=== PATIENT | male | born 1970 | race Caucasian/White ===

== ENCOUNTER → 2017-03-14 | Day surgery (SDC) | payer OTHER ==
[~2017-03-14] VITALS: Ht 186.7 cm; Wt 98.9 kg
[~2017-03-14] MED LIST: BUPIVACAINE 0.5% 50 ML VIAL. ONE; CHOL2000 PO; DESFLURANE > 120 MINUTES IH ONE; DEXAMETHASONE SOD PHOS 20 MG/5 ML VIAL. ONE; FAMOTIDINE 20 MG/2 ML VIAL ONE; GLYCOPYRROLATE 1 MG/5 ML VIAL. ONE; HYDROmorphone 2 MG/ML VIAL ONE; IBUP-1060 PO; IV RINGERS,LACTATED 1000ML 1,000 ML IV SCH; LIDOCAINE 1% 1 ML SYRINGE. ID PRN; LIDOCAINE 1% 20 ML VIAL. ONE; LIDOCAINE 2% PF Vial for OR 5 ML VIAL. ONE; LISI10TA2 PO; LISI1TAB3 PO; MIDAZOLAM HCL/PF 2 MG/2 ML VIAL. ONE; MORPHINE SULFATE 10 MG/ML VIAL. ONE; MORPHINE SULFATE 2 MG/ML DISP.SYRIN. ONE; NEOSTIGMINE METHYLSULFATE 5 MG/5 ML SYRINGE. ONE; OMEG1CAP6 PO; OMEP20CA9 PO; ONDANSETRON PF 4 MG/2 ML VIAL. IV PRN; ONDANSETRON PF 4 MG/2 ML VIAL. ONE; OXYC10TA PO; PHENYLEPHRINE in 0.9% NACL PF 1 MG/10 ML DISP.SYRIN. IV ONE; PROCHLORPERAZINE 10 MG/2 ML VIAL. IV PRN; PROPOFOL 20 ML IV ONE; SENN1TAB7 PO; [UNRECOGNIZED DRUG - OTHER] PO; fentaNYL PF VIAL 100 MCG/2 ML VIAL IV PRN; fentaNYL PF VIAL 100 MCG/2 ML VIAL ONE; oxyCODONE IR 5 MG TABLET ONE; oxyCODONE IR 5 MG TABLET PO ONE
--- NOTE | 2017-03-14 09:34 | DISCH ---
DISCHARGE INSTRUCTIONS Condition on Discharge Condition on Discharge: Stable Activity After Discharge Activity Instructions for Disc: Other, see below Other activity instructions: arms to remain in splints Bathing Instructions: Shower-keep dressing dry Weight Bearing Status after Di: Non weight bearing Diet after Discharge Diet after Discharge: Regular Wound Incision Care Wound/Incision Care: Ice to area for comfort, Keep wound/cast CDI, Keep wound elevated, Do not change dressing Contacting the DRCrystal after DC Call your doctor for: Concerns you may have Follow-Up Follow up with: Carlos Enrique in 2wks MUSHTAQ GUNTER II, MD Mar 14, 2017 09:34
--- NOTE | 2017-03-14 09:40 | PDOC4 ---
Operative Note Operative Note Date of surgery: 03/14/2017 Surgeon: Larry Gunter Preoperative diagnosis: Closed bilateral intra-articular comminuted distal radius fractures Postoperative diagnosis: Same Procedure performed: Open reduction internal fixation of bilateral distal radius fractures. Anesthesia Gen. Tourniquet time: see op record Blood loss: 50mL Components inserted: Chaidez and Nephew distal radius locking plates Complications: none Reason for procedure: Hudson is a very pleasant 46-year-old who is referred to see myself from the [facility] but after [facility] suffered a [facility] and found to have displaced comminuted intra-articular bilateral distal radius fractures. Because of the fracture deformity and being bilateral injuries I did discuss proceeding with operative fixation of both of these fractures with him and after discussion of the risks, benefits, and alternatives he elected to proceed. Description of procedure: Patient was greeted in the preoperative area where the correct extremities were marked and verified. Taken back to the operative suite and his antibiotics were started and row. Once in the OR he was secured to the bed with all pressure points padded. We then placed a nonsterile tourniquet onto his left upper extremity and secured in place. We then proceeded to prep and drape this upper extremity in her usual sterile fashion after attaching the armboard. It should be noted that after removing the splint we did use a chlorhexidine pre-scrub as well. After prepping and draping, we conducted our standard preoperative timeout. I then palpated and marked her surface anatomy and zackery a line from my standard volar Aryan approach. We then exsanguinated the extremity with an Esmarch and tourniquet was insufflated to 225 mmHg. I then incised skin with a scalpel and dissected subcutaneous tissue with tenotomies and used bipolar electrocautery for cautery. The skin incision and bluntly dissected down to the pronator quadratus and fracture site. The pronator quadratus was taken down with electrocautery. I used a periosteal elevator to expose the volar distal radius in anticipation my plate application. I then performed a closed reduction maneuver consisting of re- creating the deformity and traction through his radial column with some direct manipulation as well. I then brought in C-arm to confirm appropriate reduction and used a [place] elevator tequila couple pieces back into better position. I then provisionally pinned my plate into place and checked hardware position and fracture reduction was happy with this. I then secured the plate to the shaft with a nonlocking screw and then placed my distal locking screws through the fragments. After this, I placed 2 more nonlocking screws through the plate to secured to the distal radial shaft. This wound was then irrigated out. I then took my final images. I then reapproximated the pronator quadratus with figure- of-eight 2-0 Vicryl. Subcutaneous tissue was closed with inverted interrupted 2- 0 Vicryl after the tourniquet was let down and a couple of bleeders were cauterized with bipolar cautery. 2-0 nylon in a vertical mattress fashion was used for skin. The arm was cleansed and dried and a sterile dressing was applied followed by a sugar tong splint. We then directed attention to repositioning the armboard on the contralateral side as well as applying a nonsterile tourniquet. We then proceeded to prep and drape right upper extremity are usual sterile fashion and conducted our standard preoperative timeout. I then palpated and marked his surface anatomy and zackery a line from my standard volar Aryan approach. We then exsanguinated the extremity and Esmarch and insufflated tourniquet to 250 mmHg. I then made my skin incision dissected subcutaneous tissue with bipolar cautery and tenotomy spread I incised fashion with the skin incision and bluntly dissected down to the level of the pronator quadratus which was released with electrocautery off of the distal radius. I then used a periosteal elevator to expose the distal radius in anticipation I-plate application and then used a dental pick and a metal tipped suction device to clean out the longitudinal fracture through the metadiaphyseal region as well as at the distal radius fracture site. I then used a [id number] to hold his metaphysis to reduced and performed a closed reduction maneuver to better align his distal radius fragments. I used a [place] elevator and dental pick to help saavedra some of these and better and then provisionally placed my plate in the [place] took my C-arm images to confirm appropriate hardware position and reduction. I then secured my plate to the bone with a nonlocking screw and then directed my attention to placing my distal screws, using liberal fluoroscopy to help assist with this. I then placed another screw to secure the plate to the bone behind this distalmost row and then another screw proximal to the fracture site. I then took my final images this and was happy with fracture reduction and hardware position. After this irrigated out the operative field and we let tourniquet down I cauterized couple bleeders. Pronator was reapproximated with figure-of- eight 0 Vicryl. I then closed subcutaneous tissue with inverted interrupted 2-0 Vicryl followed by again 2-0 nylon in a vertical mattress fashion. We then cleansed and dried his right upper extremity placed sterile dressing and a sugar tong splint. Prior to compression wound closure all culture reports correct 2 for both procedures. At the conclusion of the second part of this procedure, he was awakened from anesthesia and transferred gently supine to the recovery room cart and taken to PACU in a stable and extubated condition. Postoperative plan is nonweightbearing bilateral upper extremities. He'll follow up with me in 2 weeks, sooner should a problem arise LARRY GUNTER II, MD Mar 14, 2017 09:40
[2017-03-14] MEDS: fentaNYL PF VIAL 100 MCG/2 ML VIAL IV PRN ×5 (13:12→13:59)
[2017-03-14] MEDS: MORPHINE SULFATE 2 MG/ML DISP.SYRIN. IV PRN ×4 (13:29→14:05)
[2017-03-14] MEDS: HYDROmorphone 2 MG/ML VIAL IV PRN ×4 (14:17→14:51)
[2017-03-14 15:00] VITALS: BP 180/80
== END | disposition home or self-care (01) ==
LOC: SURG 08:22
PROVIDERS: ATTEND Orthopaedic Surgery Sports Medicine
DX: S52.572A Other intraarticular fracture of lower end of left radius, initial encounter for closed fracture (principal); S52.571A Other intraarticular fracture of lower end of right radius, initial encounter for closed fracture; X58.XXXA Exposure to other specified factors, initial encounter; Y93.89 Activity, other specified; Y92.89 Other specified places as the place of occurrence of the external cause; Y99.9 Unspecified external cause status; F17.200 Nicotine dependence, unspecified, uncomplicated; I10 Essential (primary) hypertension; F41.9 Anxiety disorder, unspecified; F32.9 Major depressive disorder, single episode, unspecified; Z87.39 Personal history of other diseases of the musculoskeletal system and connective tissue; Z86.39 Personal history of other endocrine, nutritional and metabolic disease; Z72.89 Other problems related to lifestyle; Z86.69 Personal history of other diseases of the nervous system and sense organs; Z72.0 Tobacco use; Z88.6 Allergy status to analgesic agent
CPT/HCPCS: 25608; 76000; C1713; J0690; J1100; J1170; J2250; J2270; J2370; J2405; J2704; J2710; J3010; J3490; J7120; S0028; J2001

== ENCOUNTER 2017-07-11 22:38 | Inpatient (IN) | payer OTHER ==
[~2017-07-11] VITALS: Ht 188 cm; Wt 99.9 kg
[2017-07-11 12:45] VITALS: BP 114/70
[~2017-07-11 22:38] MED LIST changes: -BUPIVACAINE 0.5% 50 ML VIAL. ONE; -DESFLURANE > 120 MINUTES IH ONE; -DEXAMETHASONE SOD PHOS 20 MG/5 ML VIAL. ONE; -FAMOTIDINE 20 MG/2 ML VIAL ONE; -GLYCOPYRROLATE 1 MG/5 ML VIAL. ONE; -HYDROmorphone 2 MG/ML VIAL ONE; -IV RINGERS,LACTATED 1000ML 1,000 ML IV SCH; -LIDOCAINE 1% 1 ML SYRINGE. ID PRN; -LIDOCAINE 1% 20 ML VIAL. ONE; -LIDOCAINE 2% PF Vial for OR 5 ML VIAL. ONE; -MIDAZOLAM HCL/PF 2 MG/2 ML VIAL. ONE; -MORPHINE SULFATE 10 MG/ML VIAL. ONE; -MORPHINE SULFATE 2 MG/ML DISP.SYRIN. ONE; -NEOSTIGMINE METHYLSULFATE 5 MG/5 ML SYRINGE. ONE; -ONDANSETRON PF 4 MG/2 ML VIAL. IV PRN; -ONDANSETRON PF 4 MG/2 ML VIAL. ONE; -PHENYLEPHRINE in 0.9% NACL PF 1 MG/10 ML DISP.SYRIN. IV ONE; -PROCHLORPERAZINE 10 MG/2 ML VIAL. IV PRN; -PROPOFOL 20 ML IV ONE; -fentaNYL PF VIAL 100 MCG/2 ML VIAL IV PRN; -fentaNYL PF VIAL 100 MCG/2 ML VIAL ONE; -oxyCODONE IR 5 MG TABLET ONE; -oxyCODONE IR 5 MG TABLET PO ONE
[2017-07-11 23:00] LABS: BASO % 1 % (0-3); EOS % 3 % (0-3); HEMOGLOBIN 15.1 g/dL (13.0-17.5); LYMPH # 1.7 x10^3/uL (1.0-4.8); LYMPH % 34 % (24-48); MEAN CORPUSCULAR HEMOGLOBIN 31 pg (25-35); MEAN CORPUSCULAR HGB CONC 34 g/dL (31-37); MEAN CORPUSCULAR VOLUME 91 fL (79-100); MONO % 10 % (0-9); NEUT % 53 % (31-73); PLATELET COUNT 235 x10^3/uL (140-400); RED BLOOD COUNT 4.94 x10^6/uL (4.30-5.70); RED CELL DISTRIBUTION WIDTH 13.8 % (11.5-14.5)
[2017-07-11] MEDS ORDERED: IV NORMAL SALINE 1000ML BAG 1,000 ML IV SCH (23:00)
--- NOTE | 2017-07-11 23:07 | PHYS DOC ---
Adult General Chief Complaint Chief Complaint: SUICDAL IDEATION HPI HPI Patient is a 47 year old male who presents with complaint of intentional drug overdose. The patient states that he took approximately 40-50 tablets of lisinopril/HCTZ 10/12.5mg at approximately 2030 this evening. The patient states he took this medication with intent to try to kill himself. The patient also states that he has drank 2 pints of vodka today which reportedly is a regular daily consumption. The patient is feeling very depressed at this time and states that he has history of PTSD, anxiety, and depression. The patient states that he is having chronic back pain at this time but denies any new or acute symptoms upon presentation to the emergency department. The patient is asking for help. The patient originally planned on going to the [place] tomorrow for help, however he decided to act on his thoughts of suicide tonight. Review of Systems Review of Systems Constitutional: Denies fever or chills [] Eyes: Denies change in visual acuity, redness, or eye pain [] HENT: Denies nasal congestion or sore throat [] Respiratory: Denies cough or shortness of breath [] Cardiovascular: Denies chest pain or edema[] GI: Denies abdominal pain, nausea, vomiting, bloody stools or diarrhea [] : Denies dysuria or hematuria [] Musculoskeletal: Chronic back pain[] Integument: Denies rash or skin lesions [] Neurologic: Denies headache, focal weakness or sensory changes [] All other systems were reviewed and found to be within normal limits, except as documented in this note. Current Medications Current Medications Current Medications Medications (Trade) Dose Ordered Sig/[facility] Start Time Stop Time Status Last Admin Dose Admin Famotidine (Pepcid Vial) 20 mg 1X ONCE 07/11/17 23:30 07/11/17 23:31 DC 07/11/17 23:19 20 MG Folic Acid (Folic Acid) 1 mg 1X ONCE 07/11/17 23:30 07/11/17 23:31 DC 07/11/17 23:19 1 MG Multivitamins (Thera M Plus) 1 tab 1X ONCE 07/11/17 23:30 07/11/17 23:31 DC 07/11/17 23:19 1 TAB Ondansetron HCl (Zofran) 4 mg PRN Q8HRS PRN 07/11/17 23:45 07/12/17 23:44 Sodium Chloride 1,000 ml @ 125 mls/hr Q8H 07/12/17 00:00 07/12/17 00:01 Thiamine Mononitrate (Vitamin B-1) 100 mg 1X ONCE 07/11/17 23:30 07/11/17 23:31 DC 07/11/17 23:20 100 MG Allergies Allergies Allergies Coded Allergies Type Severity Reaction Last Updated Verified acetaminophen Allergy Intermediate Rash 03/14/17 Yes Physical Exam Physical Exam Constitutional: Alert, afebrile, vital signs stable. [] HENT: Normocephalic, atraumatic, bilateral external ears normal, oropharynx moist, no oral exudates, nose normal. [] Eyes: PERRLA, EOMI, conjunctiva normal, no discharge. [] Neck: Normal range of motion, no tenderness, supple, no stridor. [] Cardiovascular: Tachycardia, regular rhythm, no murmur [] Lungs & Thorax: Bilateral breath sounds clear to auscultation [] Abdomen: Bowel sounds normal, soft, no tenderness, no masses, no pulsatile masses. [] Skin: Warm, dry, no erythema, no rash. [] Back: No tenderness, no CVA tenderness. [] Extremities: No tenderness, no cyanosis, no clubbing, ROM intact, no edema. [] Neurologic: Alert and oriented X 3, normal motor function, normal sensory function, no focal deficits noted. [] Psychologic: Affect flat, judgement impaired, mood depressed. [] Current Patient Data Vital Signs Vital Signs Date Time Temp Pulse Resp B/P (MAP) Pulse Ox O2 Delivery O2 Flow Rate FiO2 07/11/17 23:28 98.8 110 20 140/85 (103) 97 Room Air 98.8 Lab Values Laboratory Tests Test 07/11/17 22:45 07/11/17 23:00 White Blood Count 5.0 x10^3/uL (4.0-11.0) Red Blood Count 4.94 x10^6/uL (4.30-5.70) Hemoglobin 15.1 g/dL (13.0-17.5) Hematocrit 45.0 % (39.0-53.0) Mean Corpuscular Volume 91 fL (79-100) Mean Corpuscular Hemoglobin 31 pg (25-35) Mean Corpuscular Hemoglobin Concent 34 g/dL (31-37) Red Cell Distribution Width 13.8 % (11.5-14.5) Platelet Count 235 x10^3/uL (140-400) Neutrophils (%) (Auto) 53 % (31-73) Lymphocytes (%) (Auto) 34 % (24-48) Monocytes (%) (Auto) 10 % (0-9) H Eosinophils (%) (Auto) 3 % (0-3) Basophils (%) (Auto) 1 % (0-3) Neutrophils # (Auto) 2.7 x10^3uL (1.8-7.7) Lymphocytes # (Auto) 1.7 x10^3/uL (1.0-4.8) Monocytes # (Auto) 0.5 x10^3/uL (0.0-1.1) Eosinophils # (Auto) 0.2 x10^3/uL (0.0-0.7) Basophils # (Auto) 0.0 x10^3/uL (0.0-0.2) Prothrombin Time 11.9 SEC (11.7-14.0) Prothrombin Time INR 0.9 (0.8-1.1) PTT 23 SEC (24-38) L Sodium Level 142 mmol/L (136-145) Potassium Level 4.0 mmol/L (3.5-5.1) Chloride Level 103 mmol/L (98-107) Carbon Dioxide Level 24 mmol/L (21-32) Anion Gap 15 (6-14) H Blood Urea Nitrogen 12 mg/dL (8-26) Creatinine 1.3 mg/dL (0.7-1.3) Estimated GFR (Cockcroft-Gault) 58.9 Glucose Level 90 mg/dL (70-99) Calcium Level 8.2 mg/dL (8.5-10.1) L Magnesium Level 2.0 mg/dL (1.8-2.4) Total Bilirubin 0.1 mg/dL (0.2-1.0) L Direct Bilirubin 0.1 mg/dL (0.0-0.2) Aspartate Amino Transferase (AST) 28 U/L (15-37) Alanine Aminotransferase (ALT) 26 U/L (16-63) Alkaline Phosphatase 123 U/L (46-116) H Total Protein 7.8 g/dL (6.4-8.2) Albumin 3.7 g/dL (3.4-5.0) Salicylates Level < 2.8 mg/dL (2.8-20.0) L Salicylate Last Dose Date Unknown Salicylate Last Dose Time Unknown Acetaminophen Level < 2 mcg/ml (10-30) L Acetaminophen Last Dose Date Unknown Acetaminophen Last Dose Time Unknown Ethyl Alcohol Level 132 mg/dL (0-10) H Urine Collection Type Unknown Urine Color Yellow Urine Clarity Clear Urine pH 7.5 Urine Specific [place] 1.015 Urine Protein Negative mg/dL (NEG-TRACE) Urine Glucose (UA) Negative mg/dL (NEG) Urine Ketones (Stick) Negative mg/dL (NEG) Urine Blood Negative (NEG) Urine Nitrite Negative (NEG) Urine Bilirubin Negative (NEG) Urine Urobilinogen Dipstick 1.0 mg/dL (0.2 mg/dL) Urine Leukocyte Esterase Negative (NEG) Urine RBC 0 /HPF (0-2) Urine WBC Rare /HPF (0-4) Urine Squamous Epithelial Cells None /LPF Urine Bacteria 0 /HPF (0-FEW) Urine Hyaline Casts Occasional /HPF Urine Mucus Slight /LPF Urine Opiates Screen Neg (NEG) Urine Methadone Screen Neg (NEG) Urine Barbiturates Neg (NEG) Urine Phencyclidine Screen Neg (NEG) Urine Amphetamine/Methamphetamine Neg (NEG) Urine Benzodiazepines Screen Neg (NEG) Urine Cocaine Screen Neg (NEG) Urine Cannabinoids Screen Pos (NEG) Urine Ethyl Alcohol Pos (NEG) Laboratory Tests 07/11/17 22:45 Laboratory Tests 07/11/17 22:45 EKG EKG Interpreted by me: Heart rate 104, sinus tachycardia, normal intervals, normal axis, no acute ST/T-wave abnormalities present[] Radiology/Procedures Radiology/Procedures Not performed[] Course & Med Decision Making Course & Med Decision Making Pertinent Labs and Imaging studies reviewed. (See chart for details) Poison control was contacted upon arrival to the emergency department. Based off of time of reported consumption, they did not recommend use of activated charcoal but recommended supportive care at this time and recommended a minimum of 12 hours of observation. The patient this will be admitted to the hospital for medical clearance and then will receive psychiatric evaluation once the patient is medically cleared. I spoke to Dr. Cisneros who accepted care of patient in hospital. Dragon Disclaimer Dragon Disclaimer This electronic medical record was generated, in whole or in part, using a voice recognition dictation system. Departure Departure Impression: Primary Impression: Intentional drug overdose Additional Impressions: Suicidal ideation Alcohol abuse Disposition: 09 ADMITTED INPATIENT Admitting Physician: Isabelle Cisneros Condition: GUARDED Referrals: NON,STAFF (PCP) Problem Qualifiers Primary Impression: Intentional drug overdose Encounter type: initial encounter Qualified Codes: T50.902A - Poisoning by unspecified drugs, medicaments and biological substances, intentional self-harm , initial encounter BIANCA MEADE MD Jul 11, 2017 23:07
[2017-07-11 23:09] LABS: BILIRUBIN,URINE NEGATIVE (NEG); GLUCOSE,URINE NEGATIVE (NEG); NITRITE,URINE NEGATIVE (NEG); PH,URINE 7.5; PROTEIN,URINE NEGATIVE (NEG-TRACE)
[2017-07-11 23:10] LABS: CALCIUM 8.2 mg/dL (8.5-10.1); CREATININE 1.3 mg/dL (0.7-1.3); GFR 58.9
[2017-07-11 23:11] LABS: INR 0.9 (0.8-1.1); PROTHROMBIN TIME PATIENT 11.9 SEC (11.7-14.0)
[2017-07-11 23:14] LABS: BACTERIA,URINE 0 /HPF (0-FEW); BARBITURATES NEG (NEG); BENZODIAZEPINES NEG (NEG); CANNABINOIDS POS (NEG); COCAINE NEG (NEG); METHADONE NEG (NEG); OPIATES NEG (NEG); PHENCYCLIDINE NEG (NEG); RBC,URINE 0 /HPF (0-2); WBC,URINE RARE /HPF (0-4)
[2017-07-11 23:14] LABS: ETHANOL 132 mg/dL (0-10)
[2017-07-11 23:17] LABS: ALBUMIN 3.7 g/dL (3.4-5.0); DIRECT BILIRUBIN 0.1 mg/dL (0.0-0.2); TOTAL BILIRUBIN 0.1 mg/dL (0.2-1.0); TOTAL PROTEIN 7.8 g/dL (6.4-8.2)
[2017-07-11] MEDS ORDERED: FOLIC ACID 1 MG TABLET. PO ONE (23:30)
[2017-07-11] MEDS ORDERED: THIAMINE 100 MG TABLET. PO ONE (23:30)
[2017-07-11] MEDS ORDERED: FAMOTIDINE 20 MG/2 ML VIAL IVP ONE (23:30)
[2017-07-11] MEDS ORDERED: MULTIVITAMIN with MINERAL TABLET. PO ONE (23:30)
[2017-07-11] MEDS ORDERED: ONDANSETRON PF 4 MG/2 ML VIAL. IV ONE (23:30)
[2017-07-11] MEDS ORDERED: ONDANSETRON PF 4 MG/2 ML VIAL. IV PRN (23:45)
[2017-07-12] VITALS (14 sets, daily range): BP systolic 94–125; BP diastolic 58–81
[2017-07-12] MEDS ORDERED: IV NORMAL SALINE 1000ML BAG 1,000 ML IV SCH
[2017-07-12 05:51] LABS: BASO # 0.1 x10^3/uL (0.0-0.2); BASO % 3 % (0-3); EOS % 4 % (0-3); HEMATOCRIT 42.2 % (39.0-53.0); HEMOGLOBIN 13.7 g/dL (13.0-17.5); LYMPH # 1.3 x10^3/uL (1.0-4.8); LYMPH % 37 % (24-48); MEAN CORPUSCULAR HEMOGLOBIN 30 pg (25-35); MEAN CORPUSCULAR HGB CONC 33 g/dL (31-37); MEAN CORPUSCULAR VOLUME 92 fL (79-100); MONO % 11 % (0-9); NEUT % 45 % (31-73); PLATELET COUNT 196 x10^3/uL (140-400); RED CELL DISTRIBUTION WIDTH 13.9 % (11.5-14.5); WHITE BLOOD COUNT 3.4 x10^3/uL (4.0-11.0)
[2017-07-12] MEDS ORDERED: MULTIVIT INFUSN,ADULT 4,VIT K 10 ML, THIAMINE 100 MG, FOLIC ACID 1 MG in IV NORMAL SALI... IV ONE (06:00)
[2017-07-12 06:30] LABS: CALCIUM 8.3 mg/dL (8.5-10.1); CREATININE 0.9 mg/dL (0.7-1.3); GFR 90.1; POTASSIUM 3.7 mmol/L (3.5-5.1)
[2017-07-12] MEDS: traMADol 50 MG TABLET PO PRN ×2 (06:30→13:01)
--- NOTE | 2017-07-12 07:06 | EKG ---
[facility] [address] [place] [address] Test Date: 2017-07-11 Test Time: 22:58:42 Pat Name: XAVIER ZHANG Department: Room: Gender: M Loss Prevention Lead: : 1970 Requested By: BIANCA MEADE Order Number: [id number] Reading MD: Measurements Intervals Dendron Rate: 103 P: 43 NM: 148 QRS: 25 QRSD: 84 T: 26 QT: 328 QTc: 437 Interpretive Statements SINUS TACHYCARDIA QRS(T) CONTOUR ABNORMALITY CONSISTENT WITH INFERIOR INFARCT PROBABLY OLD ABNORMAL ECG No previous ECG available for comparison
--- NOTE | 2017-07-12 10:33 | HP ---
ADMIT DATE: 07/12/2017 CHIEF COMPLAINT: Suicidal attempt. HISTORY OF PRESENT ILLNESS: The patient is a 47-year-old [facility] patient who presented to the hospital with his parents after having overdosed on a bottle of blood pressure medications. He relates that he follows up with the [facility] for psychiatric issues and had been prescribed medications in the past, but had not started taking them. He had an appointment to follow up with them today. He, however, decided to go through with his suicidal ideation and took blood pressure medications an overdose. He then told his father who brought him into the hospital. This morning, he feels better. Denies any ongoing suicidal ideation. He was admitted to the ICU for monitoring as per recommendation from Poison Control. PAST MEDICAL HISTORY: Hypertension, depression, chronic back pain due to work injury. SOCIAL HISTORY: Lives with his parents, smokes tobacco occasionally and smokes pot regularly, has taken himself off narcotic medications. Is retired from the [employer]. FAMILY HISTORY: Positive for heart disease, hypertension and diabetes. ALLERGIES: TYLENOL. HOME MEDICATIONS: MAR reconciled with home meds. REVIEW OF SYSTEMS: Positive only for chronic back pain, currently fairly well controlled while lying in bed. Denies any other physical complaints in entire rest of organ system review. PHYSICAL EXAMINATION: VITAL SIGNS: From today show a blood pressure of 114/76, heart rate of 82, respiratory rate at 18. He is afebrile. GENERAL: This is a 47-year-old gentleman, alert and oriented, in no acute distress. HEENT: Shows no scleral icterus. NECK: Supple. CARDIOVASCULAR: Heart has regular rate and rhythm without any murmurs. LUNGS: Clear to auscultation bilaterally. ABDOMEN: Has positive bowel sounds, soft, nontender, no organomegaly or masses. EXTREMITIES: Show no edema. SKIN: Warm, soft and dry without any rash. NEUROLOGIC: He is grossly intact. PSYCHIATRIC: Shows currently stable mood. LABORATORY DATA: CBC with a WBC of 3.4, hemoglobin 13.7, platelets of 196. Chemistries with a BUN and creatinine of 9 and 0.9. Normal electrolytes. LFTs at admission within normal limits. Tox screen at admission positive for alcohol with a blood alcohol level of 132. ASSESSMENT AND PLAN: The patient is a 47-year-old gentleman who presented after a suicide attempt with drug overdose. He is medically stable at this time. PAT Team has been consulted and case was discussed with them. Plan is for voluntary admission either to the [facility] or [facility]. Arrangements will be made through a social media developer here. Clinically, he appears completely stable at this point and is medically cleared for discharge to facility. We will continue his home medications. We will await further input for start of SSRI or other medications for his depression. He will remain with 1:1 sitter for the time being. AMAN ZAMORA MD DR: UR/nts JOB#: [id number] / [id number]
[2017-07-12] MEDS ORDERED: CHOLECALCIFEROL (VITAMIN D3) 1,000 UNIT TABLET PO SCH (11:00)
[2017-07-12] MEDS ORDERED: OMEGA-3 FATTY ACIDS/FISH OIL 1,000 MG CAPSULE. PO SCH (11:00)
[2017-07-12] MEDS ORDERED: LISINOPRIL 10 MG TABLET PO SCH (11:00)
[2017-07-12] MEDS ORDERED: hydroCHLOROthiazide 12.5 MG CAPSULE PO SCH (11:00)
[2017-07-12] MEDS ORDERED: PANTOPRAZOLE 40 MG TABLET.DR. PO SCH (11:30)
== END 2017-07-12 15:40 | DRG 918 ==
LOC: ER 22:38 → 1 WEST ICU 23:23
PROVIDERS: ADMIT Internal Medicine; ATTEND Internal Medicine
DX: T46.4X2A Poisoning by angiotensin-converting-enzyme inhibitors, intentional self-harm, initial encounter (principal); F10.10 Alcohol abuse, uncomplicated; F32.9 Major depressive disorder, single episode, unspecified; F43.10 Post-traumatic stress disorder, unspecified; G89.29 Other chronic pain; I10 Essential (primary) hypertension; Z82.49 Family history of ischemic heart disease and other diseases of the circulatory system; Z83.3 Family history of diabetes mellitus; F41.9 Anxiety disorder, unspecified; Z88.8 Allergy status to other drugs, medicaments and biological substances; T50.2X2A Poisoning by carbonic-anhydrase inhibitors, benzothiadiazides and other diuretics, intentional self-harm, initial encounter; Y92.89 Other specified places as the place of occurrence of the external cause
CPT/HCPCS: 36415; 80048; 80076; 80307; 80329; 81001; 83735; 85025; 85610; 85730; 87641; 93005; 96361; 96374; 96375; G0480; J2405; J7030; S0028; 99285-25; G0479

== ENCOUNTER → 2017-12-05 | Day surgery (SDC) | payer OTHER ==
[~2017-12-05] MED LIST changes: +BUPIVACAINE 0.5% 50 ML VIAL.; -CHOL2000 PO; +DEXAMETHASONE SOD PHOS 20 MG/5 ML VIAL.; -IBUP-1060 PO; +LIDOCAINE 1% PF 2 ML VIAL. ID; +LIDOCAINE 1% PF 30 ML VIAL.; +LIDOCAINE 2% PF Vial for OR 5 ML VIAL.; -LISI10TA2 PO; -LISI1TAB3 PO; +MIDAZOLAM HCL/PF 2 MG/2 ML VIAL.; +MORPHINE SULFATE 4 MG/ML DISP.SYRIN. IV; -OMEG1CAP6 PO; -OMEP20CA9 PO; +ONDANSETRON PF 4 MG/2 ML VIAL.; +ONDANSETRON PF 4 MG/2 ML VIAL. IV; -OXYC10TA PO; +PROCHLORPERAZINE 10 MG/2 ML VIAL. IV; +PROPOFOL 0 ML IV; +ROCURONIUM 50 MG/5 ML VIAL.; -SENN1TAB7 PO; -[UNRECOGNIZED DRUG - OTHER] PO; +fentaNYL PF VIAL 100 MCG/2 ML VIAL; +fentaNYL PF VIAL 100 MCG/2 ML VIAL IV
[2017-12-05] MEDS: IV RINGERS,LACTATED 1000ML 1,000 ML IV (11:31)
== END ==
LOC: SURG 10:24
DX: Z47.2 Encounter for removal of internal fixation device (principal); Z53.8 Procedure and treatment not carried out for other reasons; G62.9 Polyneuropathy, unspecified; I10 Essential (primary) hypertension; E66.9 Obesity, unspecified; K21.9 Gastro-esophageal reflux disease without esophagitis; M19.90 Unspecified osteoarthritis, unspecified site; F43.10 Post-traumatic stress disorder, unspecified; F32.9 Major depressive disorder, single episode, unspecified; F41.9 Anxiety disorder, unspecified; I25.2 Old myocardial infarction; Z83.3 Family history of diabetes mellitus
CPT/HCPCS: J0690; J1100; J2250; J2405; J2704; J3010; J3490

== ENCOUNTER 2018-01-11 07:56 | Day surgery (SDC) | payer OTHER ==
[~2018-01-11 07:56] MED LIST changes: -BUPIVACAINE 0.5% 50 ML VIAL.; -DEXAMETHASONE SOD PHOS 20 MG/5 ML VIAL.; -LIDOCAINE 1% PF 30 ML VIAL.; -LIDOCAINE 2% PF Vial for OR 5 ML VIAL.; -MIDAZOLAM HCL/PF 2 MG/2 ML VIAL.; -MORPHINE SULFATE 4 MG/ML DISP.SYRIN. IV; -ONDANSETRON PF 4 MG/2 ML VIAL.; -PROPOFOL 0 ML IV; -ROCURONIUM 50 MG/5 ML VIAL.; -fentaNYL PF VIAL 100 MCG/2 ML VIAL
[2018-01-11] MEDS: IV RINGERS,LACTATED 1000ML 1,000 ML IV (08:39)
[2018-01-11] MEDS ORDERED: fentaNYL PF VIAL 100 MCG/2 ML VIAL ×2 (09:25→11:21)
[2018-01-11] MEDS ORDERED: DEXAMETHASONE SOD PHOS 20 MG/5 ML VIAL. (09:26)
[2018-01-11] MEDS ORDERED: ONDANSETRON PF 4 MG/2 ML VIAL. (09:26)
[2018-01-11] MEDS ORDERED: KETOROLAC 30 MG/ML INJ FOR OR. INJ (09:26)
[2018-01-11] MEDS ORDERED: SEVOFLURANE 61 TO 120 MINUTES. IH (09:26)
[2018-01-11] MEDS ORDERED: PROPOFOL 20 ML IV ×2 (09:26)
[2018-01-11] MEDS: BUPIVACAINE 0.5% 50 ML VIAL. (09:40)
[2018-01-11] MEDS: LIDOCAINE 1% PF 30 ML VIAL. (09:40)
[2018-01-11] MEDS ORDERED: MORPHINE SULFATE 10 MG/ML VIAL. (12:01)
[2018-01-11] MEDS: fentaNYL PF VIAL 100 MCG/2 ML VIAL IV ×4 (12:42→13:05)
[2018-01-11] MEDS: MORPHINE SULFATE 2 MG/ML DISP.SYRIN. IV ×3 (12:56→13:37)
[2018-01-11] MEDS: oxyCODONE IR 5 MG TABLET PO (13:22)
[2018-01-11] MEDS ORDERED: hydrALAZINE 20 MG/ML VIAL. (13:22)
[2018-01-11] MEDS: hydrALAZINE 20 MG/ML VIAL. IVP (13:33)
== END 2018-01-11 14:10 | disposition home or self-care (01) ==
LOC: SURG 07:56
DX: T84.84XA Pain due to internal orthopedic prosthetic devices, implants and grafts, initial encounter (principal); G56.02 Carpal tunnel syndrome, left upper limb; G89.18 Other acute postprocedural pain; Y83.1 Surgical operation with implant of artificial internal device as the cause of abnormal reaction of the patient, or of later complication, without mention of misadventure at the time of the procedure; Y92.89 Other specified places as the place of occurrence of the external cause; Z98.890 Other specified postprocedural states; G62.9 Polyneuropathy, unspecified; I10 Essential (primary) hypertension; E66.9 Obesity, unspecified; Z68.28 Body mass index [BMI] 28.0-28.9, adult; K21.9 Gastro-esophageal reflux disease without esophagitis; M79.7 Fibromyalgia; M19.90 Unspecified osteoarthritis, unspecified site; F43.10 Post-traumatic stress disorder, unspecified; F41.9 Anxiety disorder, unspecified; F32.9 Major depressive disorder, single episode, unspecified; Z72.89 Other problems related to lifestyle; F17.210 Nicotine dependence, cigarettes, uncomplicated; Z83.3 Family history of diabetes mellitus; Z82.49 Family history of ischemic heart disease and other diseases of the circulatory system; Z83.49 Family history of other endocrine, nutritional and metabolic diseases
CPT/HCPCS: 20680; 76000; A7015; J0360; J0690; J1100; J1885; J2270; J2405; J2704; J3010; J3490

== ENCOUNTER → 2019-05-07 | Outpatient (CLI) | payer OTHER ==
[2018-01-11 13:44] VITALS: BP 174/78
[~2019-05-07] MED LIST changes: +ASPI325T8 PO; +BENZ60GE TP; +CALC-56 PO; +CHOL10003 PO; +CHOL2000 PO; +DULO30CA2 PO; +FOLI1TAB16 PO; +GABA300C18 PO; +IBUP-1060 PO; +KETO15CR2 TP; -LIDOCAINE 1% PF 2 ML VIAL. ID; +LISI-338 PO; +LISI10TA2 PO; +LISI1TAB23 PO; +MELA3TAB56 PO; +MELO15TA23 PO; +METO25TA4 PO; +METO50TA6 PO; +MICO130A9 TP; +MILK140C PO; +MULT1TAB52 PO; +OMEG1CAP6 PO; +OMEP20CA10 PO; +ONDA4TAB11 PO; -ONDANSETRON PF 4 MG/2 ML VIAL. IV; +OXYC10TA PO; +OXYC5CAP PO; -PROCHLORPERAZINE 10 MG/2 ML VIAL. IV; +SENN-161 PO; +SILD20TA2 PO; +THIA100T8 PO; +[UNRECOGNIZED DRUG - OTHER] PO; -fentaNYL PF VIAL 100 MCG/2 ML VIAL IV
--- NOTE | 2019-05-07 21:00 | PAIN ---
DATE OF SERVICE: 05/07/2019 INITIAL CONSULTATION FOR PAIN CLINIC CHIEF COMPLAINT: Low back and left lower extremity pain. HISTORY OF PRESENT ILLNESS: This is a 49-year-old male who presents with history of pain since 1990. 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 The patient reports he was lifting very heavy equipment, loading and had some significant pain in the low back. It has been that way since that time. The patient reports it is not really led up, except for very briefly. He has had chiropractic treatment. He has had counseling, physical therapy, epidural injections, all of which helped, but only for temporary time. He is still doing some stretching and strengthening on his own. He has been doing physical therapy multiple times. The patient reports he is taking gabapentin, trazodone, also morphine, oxycodone, but has not had any of this in several years. He has weaned himself off of the narcotics, although he reports he does drink about 1 pint of alcohol a day and smokes marijuana generally daily to try to decrease the pain as well. The patient reports the pain is constant, sharp, stabbing, throbbing, shooting with numbness and tingling in the lower extremity, on the left side of low back, mid back, and upper back as well as the base of the neck with a burning, cramping pain in the back, aching and cold sensation in the lumbar spine as well as in the left leg with tingling in the leg as well. The patient reports no overt motor loss of the lower extremity, but significant fatigability of the left leg with activity, walking, standing, much worse with changing positions, getting up from a seated position, wakes him from sleep at night about 4-6 times, can affect his bowel or bladder control, but no loss of continence. The patient reports it does affect his ability to walk. He has a cane with him using in his right hand today. He also has a wheelchair that he takes with him on ____ traveling further distances. The patient did have a CT scan of the lumbar spine showing wedge compression of L1 with minimal loss of vertebral body height, multilevel degenerative disk disease and spondylosis, mild systolic 3-4 L shaped vertebral canal at L3-L4, moderate canal and proximal at L4, foraminal bilaterally at L4-L5, moderate right subarticular zone at L5, neural foraminal zone at L5-S1 as well. The patient rates his disability rating from 0-10, 10 being the worst, is a 10 with family and home responsibilities, recreation, occupation, 9 with sexual behavior and life support activities, 8 with social activity and 6 with self-care activities. PAST MEDICAL HISTORY: Significant for hypertension, hearing loss, reflux, dizziness, thyroid cyst, headaches, depression, arthritis. PREVIOUS SURGERY: Include gastric sleeve in 2014, bilateral wrist surgeries, and tonsillectomy. CURRENT MEDICATIONS: Include vitamins, gabapentin, ____, metoprolol, lisinopril, daily baby aspirin, and ____. ALLERGIES: THE PATIENT IS ALLERGIC TO TYLENOL, WHICH GIVES HIM A RASH. FAMILY HISTORY: Significant for hypertension and diabetes. SOCIAL HISTORY: The patient drinks alcohol about a pint a day, also smokes marijuana daily. Does not use any other illegal or recreational drugs. He is , lives with his spouse, has no children, living at home, lives locally in [place], [place] and also smokes cigars infrequently. REVIEW OF SYSTEMS: The patient's review of systems is positive for those items mentioned in history of present illness. All systems reviewed and otherwise negative. It is complete, full and well documented on the patient's chart. PHYSICAL EXAMINATION: VITAL SIGNS: The patient's blood pressure is 147/105, pulse 98, respirations 16, temperature is 98.5 degrees Fahrenheit, height is 6 feet 2 inches, weight is 241 pounds. GENERAL: The patient is awake, alert, appropriate, very pleasant demeanor. HEENT: Shows normocephalic, atraumatic. The patient with some ear piercing on the left. Extraocular movements are intact and symmetrical. Oral cavity: Mucous membranes moist and pink. Dentition is intact. NECK: Shows anterior throat supple without palpable lymphadenopathy noted. Swallow reflex symmetrical. CHEST: Shows normal on inspection. Breath sounds clear bilaterally. HEART: Shows S1, S2 clear. No murmurs auscultated. ABDOMEN: Soft, nontender, nondistended. No palpable organomegaly is noted. No rebound or guarding demonstrated. BACK: Shows spine grossly in the midline. Slight exaggeration of thoracic kyphosis, some minor flattening of lumbar lordotic curvature. Lumbar paraspinous muscle shows symmetrical on inspection; on palpation shows some moderate tenderness diffusely bilaterally, but only diffusely without radiation. The patient has good rotational motion of lumbar spine both laterally with some mild tenderness in right and left lateral rotation. Mild tenderness with extension greater than 10 degrees, but no tenderness with forward flexion at 45 degrees, which is performed without difficulty. No tenderness over the spinous processes, sacrum or sacroiliac regions. EXTREMITIES: Lower extremities show deep tendon reflexes at 1+ in the patellar and tendo-calcaneus, tendons are equal. Motor exam is strong with 5/5 dorsiflexion, extension, quadriceps and hamstring flexion and symmetrical as well. Peripheral pulses are 1+ posterior tibia. No peripheral edema is noted. The patient is able to stand, has difficulty rising from a seated position. He is using a cane in his right hand, has a significant limp does appear to favor fairly significantly in the left lower extremity with ambulation. SKIN: The patient's skin shows warm and dry, good turgor. No edema. No sores, rashes or bruising. IMPRESSION: 1. This is a 49-year-old male with long history of low back pain, left lower extremity pain in a radicular fashion. 2. CT scan of lumbar spine as noted. 3. Hypertension. 4. Arthritis. 5. Alcoholism. 6. Marijuana use. PLAN: Options were discussed with the patient including conservative medical managements, physical therapies and interventional techniques. He would like to pursue most conservative course at this time. We discussed physical therapy. We will have this ordered. Once this is completed, we discussed other options, other interventional techniques if necessary. The patient understands and agrees. We will follow up after physical therapy is completed. CHEN PINEDA MD DR: LETITIA/keny JOB#: [id number] / [id number]
== END | disposition home or self-care (01) ==
LOC: PNCL 10:51
PROVIDERS: ATTEND Anesthesiology
DX: M54.5 Low back pain (principal); M79.605 Pain in left leg; I10 Essential (primary) hypertension; M19.90 Unspecified osteoarthritis, unspecified site; F10.20 Alcohol dependence, uncomplicated; F17.290 Nicotine dependence, other tobacco product, uncomplicated; F12.90 Cannabis use, unspecified, uncomplicated; Z88.8 Allergy status to other drugs, medicaments and biological substances
CPT/HCPCS: G0463